=== PATIENT | female | born 2000 | race Caucasian/White ===

== ENCOUNTER 2019-04-20 18:46 | Emergency (ER) | payer OTHER, SELFPAY ==
[2019-04-20 18:47] VITALS: BP 125/87; PULSE 80; RESP 16; TEMP 36.8; O2SAT 99; BMI 18.7
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
[2019-04-20] MEDS: Naproxen 500 MG Tablet PO (19:04)
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
== END 2019-04-20 19:50 | disposition home or self-care (01) ==
PROVIDERS: Emergency Provider Emergency Medicine; Family Provider Pediatrics; PCP Pediatrics
DX: S62.317A Displaced fracture of base of fifth metacarpal bone, left hand, initial encounter for closed fracture (principal); S20.312A Abrasion of left front wall of thorax, initial encounter; V47.5XXA Car driver injured in collision with fixed or stationary object in traffic accident, initial encounter; Y93.9 Activity, unspecified; Y92.488 Other paved roadways as the place of occurrence of the external cause; Y99.9 Unspecified external cause status
CPT/HCPCS: 29125; 71046; 73110; 99283

== ENCOUNTER → 2019-05-17 08:53 | Outpatient (CLI) | payer OTHER, SELFPAY ==
[2019-05-17 07:53] VITALS: BMI 18.7
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
== END ==
LOC: HPRAD 08:56
PROVIDERS: Family Provider Pediatrics; PCP Pediatrics; Referring Provider Orthopaedic Surgery; Visit Provider Orthopaedic Surgery
DX: S62.308A Unspecified fracture of other metacarpal bone, initial encounter for closed fracture (principal); X58.XXXA Exposure to other specified factors, initial encounter; Y93.9 Activity, unspecified; Y92.9 Unspecified place or not applicable; Y99.9 Unspecified external cause status
CPT/HCPCS: 73130

== ENCOUNTER → 2019-06-14 08:45 | Outpatient (CLI) | payer OTHER, SELFPAY ==
[2019-06-14 08:40] VITALS: BMI 18.7
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
== END ==
PROVIDERS: Family Provider Pediatrics; PCP Pediatrics; Referring Provider Orthopaedic Surgery; Visit Provider Orthopaedic Surgery
DX: S62.347D Nondisplaced fracture of base of fifth metacarpal bone, left hand, subsequent encounter for fracture with routine healing (principal); X58.XXXD Exposure to other specified factors, subsequent encounter
CPT/HCPCS: 73130

== ENCOUNTER 2020-06-20 14:02 | Emergency (ER) | payer OTHER, SELFPAY ==
[2019-06-14 08:40] VITALS: BMI 18.7
[2020-06-20 14:04] VITALS: BP 122/80; PULSE 111; RESP 16; TEMP 36.1; O2SAT 100
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
--- NOTE | 2020-06-20 15:07 | ED.RN ---
[employer]OMET[employer] TE[employer] CALLED. AMRITA SIMMONS . PER HER HR REP. NO TEST REQUIRED. Kelsey MAI, RN [id number]
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
[2020-06-20] MEDS: Diphth,Pertuss(Acell),Tet Vac 0.5 ML Vial IM (15:39)
[2020-06-20 15:43] VITALS: BP 135/109
== END 2020-06-20 15:51 | disposition home or self-care (01) ==
PROVIDERS: Emergency Provider Student in an Organized Health Care Education/Training Program
DX: T23.261A Burn of second degree of back of right hand, initial encounter (principal); T23.131A Burn of first degree of multiple right fingers (nail), not including thumb, initial encounter; X10.2XXA Contact with fats and cooking oils, initial encounter; Y93.89 Activity, other specified; Y92.9 Unspecified place or not applicable; Y99.0 Civilian activity done for income or pay; Z23 Encounter for immunization
CPT/HCPCS: 73130; 90471; 90715; 99283